=== PATIENT | male | born 1940 | race Caucasian/White ===

== ENCOUNTER 2018-02-28 07:10 | Emergency (ER) | payer MEDICARE, BC ==
[~2018-02-28] VITALS: Ht 195.6 cm; Wt 86.3 kg
[~2018-02-28 07:10] MED LIST: ATACAND8 MG PO; METFORMIN500 M2 PO; NAPROSYN250 MG PO; ULTRAM50 M1 PO
[2018-02-28] MEDS ORDERED: CEPHALEXIN500 M1 PO (07:15)
[2018-02-28] MEDS ORDERED: MUPIROCIN21 TOP (07:15)
[2018-02-28 07:32] VITALS: BP 171/68
== END 2018-02-28 07:39 | disposition home or self-care (01) ==
LOC: ED 07:10
DX: S81.812A Laceration without foreign body, left lower leg, initial encounter (principal); W22.8XXA Striking against or struck by other objects, initial encounter; Y93.89 Activity, other specified; Y92.89 Other specified places as the place of occurrence of the external cause; Y99.0 Civilian activity done for income or pay

== ENCOUNTER 2021-06-15 15:17 | Emergency (ER) | payer MEDICARE, BC ==
[~2021-06-15] VITALS: Ht 195.6 cm; Wt 87.0 kg
[~2021-06-15 15:17] MED LIST changes: +CEPHALEXIN500 M1 PO; +MUPIROCIN21 TOP
[2021-06-15] MEDS ORDERED: AMOX/K CLAV875 M1 PO (19:01)
[2021-06-15 19:07] VITALS: BP 138/72
[2021-07-20] MEDS ORDERED: COQ10200 MG PO (12:48)
[2021-07-20] MEDS ORDERED: CENTRUM SILVER1 TA2 PO (12:49)
[2021-07-20] MEDS ORDERED: ADLT ASA LOW81 MG PO (12:49)
[2021-07-20] MEDS ORDERED: [UNRECOGNIZED DRUG - CODE] PO (12:50)
[2021-07-20] MEDS ORDERED: SAW PALMETTO450 MG PO (12:50)
[2021-07-20] MEDS ORDERED: XYOSTED50 MG/0.5 IM (12:51)
[2021-07-20] MEDS ORDERED: PRAVASTATIN40 MG PO (12:52)
[2021-07-20] MEDS ORDERED: CINNAMON500 MG PO (12:52)
[2021-07-20] MEDS ORDERED: GLIPIZIDE ER5 MG PO (12:53)
[2021-07-20] MEDS ORDERED: ARIMIDEX1 MG PO (12:53)
[2021-07-20] MEDS ORDERED: ALPHA LIPOIC A600 MG PO (12:54)
[2021-07-20] MEDS ORDERED: TIMOLOL 0.25%5 ML OU (12:54)
[2021-07-20] MEDS ORDERED: GLUCOSAMINE/CHO1 CAP PO (12:55)
== END 2021-06-15 19:15 | disposition home or self-care (01) ==
LOC: ED 15:17
PROC: 0HQ1XZZ Repair Face Skin, External Approach (ICD-10-PCS; principal; 2021-06-15)
PROC: 0HQEXZZ Repair Left Lower Arm Skin, External Approach (ICD-10-PCS; 2021-06-15)
PROC: 09C47ZZ Extirpation of Matter from Left External Auditory Canal, Via Natural or Artificial Opening (ICD-10-PCS; 2021-06-15)
DX: S00.12XA Contusion of left eyelid and periocular area, initial encounter (principal); S00.212A Abrasion of left eyelid and periocular area, initial encounter; S51.012A Laceration without foreign body of left elbow, initial encounter; S80.212A Abrasion, left knee, initial encounter; S81.812A Laceration without foreign body, left lower leg, initial encounter; H61.22 Impacted cerumen, left ear; J32.8 Other chronic sinusitis; I10 Essential (primary) hypertension; E11.9 Type 2 diabetes mellitus without complications; W10.9XXA Fall (on) (from) unspecified stairs and steps, initial encounter; Y92.009 Unspecified place in unspecified non-institutional (private) residence as the place of occurrence of the external cause; Z79.82 Long term (current) use of aspirin; Z79.84 Long term (current) use of oral hypoglycemic drugs; Z20.822 Contact with and (suspected) exposure to COVID-19

== ENCOUNTER 2021-06-21 10:55 | Emergency (ER) | payer MEDICARE, BC ==
[~2021-06-21] VITALS: Ht 195.6 cm; Wt 86.0 kg
[~2021-06-21 10:55] MED LIST changes: +AMOX/K CLAV875 M1 PO
[2021-06-21 12:24] LABS: URINE BILIRUBIN - DIPSTICK NEGATIVE (NEGATIVE); URINE BLOOD DIPSTICK MODERATE (NEGATIVE); URINE COLOR YELLOW; URINE GLUCOSE - DIPSTICK 500 mg/dL (NEGATIVE); URINE KETONE TRACE mg/dL (NEGATIVE); URINE LEUK ESTERASE NEGATIVE (NEGATIVE); URINE PROTEIN - DIPSTICK NEGATIVE (NEG-TRACE); URINE UROBILINOGEN - DIPSTICK 0.2 E.U./dL (0.2)
[2021-06-21 12:25] LABS: URINE NITRITE - DIPSTICK NEGATIVE (Negative)
[2021-06-21 13:26] LABS: HEMATOCRIT 49.2 % (39.0-50.0); HEMOGLOBIN 16.6 g/dl (14.0-18.0); IMMATURE GRANULOCYTES 0.4 % (0.0-5.0); MEAN CELL VOLUME 85.6 fL CALC (80.0-100.0); MEAN CORPUSCULAR HGB 28.9 pG CALC (26.0-32.0); MEAN CORPUSCULAR HGB CONC 33.7 g/dL CAL (32.0-36.0); NEUT# 9.74 thou/uL (1.82-7.42); RED BLOOD COUNT 5.75 mill/uL (4.70-6.10); RED CELL DISTRI WIDTH 13.5 % (11.5-15.5)
[2021-06-21 13:40] LABS: ALKALINE PHOSPHATASE 37 u/l (38-126); ANION GAP 13 (6-22 (CALC)); BILIRUBIN, TOTAL 0.9 mg/dL (0.0-1.4); BUN 18 mg/dL (8-23); BUN/CREATININE RATIO 18 (12-20 (CALC)); CARBON DIOXIDE 28 mmol/l (22-30); CHLORIDE 99 mmol/l (95-108); GFR > 60 ML/MIN (>=60 (CALC)); GFR FOR AFR.AMER. > 60 ML/MIN (>=60 (CALC)); LIPASE 161 u/l (23-300); POTASSIUM 4.4 mmol/l (3.5-5.1); SGOT/AST 40 u/l (19-48); SODIUM 135 mmol/l (137-146); TOTAL PROTEIN 7.3 g/dL (6.3-8.2)
[2021-06-21] MEDS ORDERED: CIPROFLOXACN500 MG PO ×2 (14:03→14:51)
[2021-06-21 15:01] VITALS: BP 102/66
[2021-07-20] MEDS ORDERED: COQ10200 MG PO (12:48)
[2021-07-20] MEDS ORDERED: ADLT ASA LOW81 MG PO (12:49)
[2021-07-20] MEDS ORDERED: CENTRUM SILVER1 TA2 PO (12:49)
[2021-07-20] MEDS ORDERED: SAW PALMETTO450 MG PO (12:50)
[2021-07-20] MEDS ORDERED: [UNRECOGNIZED DRUG - CODE] PO (12:50)
[2021-07-20] MEDS ORDERED: XYOSTED50 MG/0.5 IM (12:51)
[2021-07-20] MEDS ORDERED: CINNAMON500 MG PO (12:52)
[2021-07-20] MEDS ORDERED: PRAVASTATIN40 MG PO (12:52)
[2021-07-20] MEDS ORDERED: ARIMIDEX1 MG PO (12:53)
[2021-07-20] MEDS ORDERED: GLIPIZIDE ER5 MG PO (12:53)
[2021-07-20] MEDS ORDERED: TIMOLOL 0.25%5 ML OU (12:54)
[2021-07-20] MEDS ORDERED: ALPHA LIPOIC A600 MG PO (12:54)
[2021-07-20] MEDS ORDERED: GLUCOSAMINE/CHO1 CAP PO (12:55)
== END 2021-06-21 15:02 | disposition home or self-care (01) ==
LOC: ED 10:55
PROC: 0T9B70Z Drainage of Bladder with Drainage Device, Via Natural or Artificial Opening (ICD-10-PCS; principal; 2021-06-21)
DX: R33.9 Retention of urine, unspecified (principal); I10 Essential (primary) hypertension; E11.9 Type 2 diabetes mellitus without complications; I25.10 Atherosclerotic heart disease of native coronary artery without angina pectoris; Z95.5 Presence of coronary angioplasty implant and graft; Z79.84 Long term (current) use of oral hypoglycemic drugs

== ENCOUNTER 2021-06-22 10:33 | Emergency (ER) | payer MEDICARE, BC ==
[~2021-06-22] VITALS: Ht 195.6 cm; Wt 86.3 kg
[~2021-06-22 10:33] MED LIST changes: +CIPROFLOXACN500 MG PO
[2021-06-22 10:46] VITALS: BP 138/70
[2021-06-22 11:28] LABS: URINE BILIRUBIN - DIPSTICK NEGATIVE (NEGATIVE); URINE BLOOD DIPSTICK LARGE (NEGATIVE); URINE GLUCOSE - DIPSTICK 500 mg/dL (NEGATIVE); URINE KETONE TRACE mg/dL (NEGATIVE); URINE LEUK ESTERASE TRACE (NEGATIVE); URINE PH 5.5 (4.5-8.0); URINE PROTEIN - DIPSTICK 100 mg/dL (NEG-TRACE); URINE SPECIFIC GRAVITY >=1.030; URINE UROBILINOGEN - DIPSTICK 0.2 E.U./dL (0.2)
[2021-06-22 11:30] LABS: URINE COLOR BLOODY; URINE NITRITE - DIPSTICK NEGATIVE (Negative)
[2021-06-22 11:32] LABS: HEMATOCRIT 49.7 % (39.0-50.0); HEMOGLOBIN 16.7 g/dl (14.0-18.0); IMMATURE GRANULOCYTES 0.4 % (0.0-5.0); MEAN CELL VOLUME 85.8 fL CALC (80.0-100.0); MEAN CORPUSCULAR HGB 28.8 pG CALC (26.0-32.0); MEAN CORPUSCULAR HGB CONC 33.6 g/dL CAL (32.0-36.0); NEUT# 7.9 thou/uL (1.82-7.42); RED BLOOD COUNT 5.79 mill/uL (4.70-6.10); RED CELL DISTRI WIDTH 13.7 % (11.5-15.5)
[2021-06-22 11:49] LABS: ACT PARTIAL THROMBO TIME 25.2 SECONDS (20.0-32.5); ALBUMIN 3.9 g/dL (3.2-5.0); ALKALINE PHOSPHATASE 34 u/l (38-126); ANION GAP 14 (6-22 (CALC)); BILIRUBIN, TOTAL 0.9 mg/dL (0.0-1.4); BUN 20 mg/dL (8-23); BUN/CREATININE RATIO 21 (12-20 (CALC)); CARBON DIOXIDE 27 mmol/l (22-30); CHLORIDE 99 mmol/l (95-108); GFR > 60 ML/MIN (>=60 (CALC)); GFR FOR AFR.AMER. > 60 ML/MIN (>=60 (CALC)); INTERNATIONAL NORMALIZED RATIO 1.1 RATIO (0.7-1.3); LIPASE 147 u/l (23-300); POTASSIUM 4.6 mmol/l (3.5-5.1); PROTHROMBIN TIME 11.5 SECONDS (9.0-12.5); SGOT/AST 31 u/l (19-48); SODIUM 135 mmol/l (137-146); TOTAL PROTEIN 6.8 g/dL (6.3-8.2)
[2021-07-20] MEDS ORDERED: COQ10200 MG PO (12:48)
[2021-07-20] MEDS ORDERED: ADLT ASA LOW81 MG PO (12:49)
[2021-07-20] MEDS ORDERED: CENTRUM SILVER1 TA2 PO (12:49)
[2021-07-20] MEDS ORDERED: [UNRECOGNIZED DRUG - CODE] PO (12:50)
[2021-07-20] MEDS ORDERED: SAW PALMETTO450 MG PO (12:50)
[2021-07-20] MEDS ORDERED: XYOSTED50 MG/0.5 IM (12:51)
[2021-07-20] MEDS ORDERED: PRAVASTATIN40 MG PO (12:52)
[2021-07-20] MEDS ORDERED: CINNAMON500 MG PO (12:52)
[2021-07-20] MEDS ORDERED: ARIMIDEX1 MG PO (12:53)
[2021-07-20] MEDS ORDERED: GLIPIZIDE ER5 MG PO (12:53)
[2021-07-20] MEDS ORDERED: ALPHA LIPOIC A600 MG PO (12:54)
[2021-07-20] MEDS ORDERED: TIMOLOL 0.25%5 ML OU (12:54)
[2021-07-20] MEDS ORDERED: GLUCOSAMINE/CHO1 CAP PO (12:55)
== END 2021-06-22 15:34 | disposition home or self-care (01) ==
LOC: ED 10:33
PROC: 0T2BX0Z Change Drainage Device in Bladder, External Approach (ICD-10-PCS; principal; 2021-06-22)
DX: R31.9 Hematuria, unspecified (principal); I10 Essential (primary) hypertension; E11.9 Type 2 diabetes mellitus without complications; N40.1 Benign prostatic hyperplasia with lower urinary tract symptoms; R33.8 Other retention of urine; Z96.0 Presence of urogenital implants; Z79.84 Long term (current) use of oral hypoglycemic drugs; Z95.5 Presence of coronary angioplasty implant and graft

== ENCOUNTER 2021-06-24 10:33 | Emergency (ER) | payer MEDICARE, BC ==
[~2021-06-24] VITALS: Ht 195.6 cm; Wt 87.0 kg
[2021-06-24 12:59] VITALS: BP 171/74
[2021-07-20] MEDS ORDERED: COQ10200 MG PO (12:48)
[2021-07-20] MEDS ORDERED: CENTRUM SILVER1 TA2 PO (12:49)
[2021-07-20] MEDS ORDERED: ADLT ASA LOW81 MG PO (12:49)
[2021-07-20] MEDS ORDERED: SAW PALMETTO450 MG PO (12:50)
[2021-07-20] MEDS ORDERED: [UNRECOGNIZED DRUG - CODE] PO (12:50)
[2021-07-20] MEDS ORDERED: XYOSTED50 MG/0.5 IM (12:51)
[2021-07-20] MEDS ORDERED: CINNAMON500 MG PO (12:52)
[2021-07-20] MEDS ORDERED: PRAVASTATIN40 MG PO (12:52)
[2021-07-20] MEDS ORDERED: ARIMIDEX1 MG PO (12:53)
[2021-07-20] MEDS ORDERED: GLIPIZIDE ER5 MG PO (12:53)
[2021-07-20] MEDS ORDERED: ALPHA LIPOIC A600 MG PO (12:54)
[2021-07-20] MEDS ORDERED: TIMOLOL 0.25%5 ML OU (12:54)
[2021-07-20] MEDS ORDERED: GLUCOSAMINE/CHO1 CAP PO (12:55)
== END 2021-06-24 13:03 | disposition home or self-care (01) ==
LOC: ED 10:33
PROC: 0T2BX0Z Change Drainage Device in Bladder, External Approach (ICD-10-PCS; principal; 2021-06-24)
DX: T83.031A Leakage of indwelling urethral catheter, initial encounter (principal); I10 Essential (primary) hypertension; I25.10 Atherosclerotic heart disease of native coronary artery without angina pectoris; E11.9 Type 2 diabetes mellitus without complications; Y84.6 Urinary catheterization as the cause of abnormal reaction of the patient, or of later complication, without mention of misadventure at the time of the procedure; Z79.82 Long term (current) use of aspirin; Z95.5 Presence of coronary angioplasty implant and graft; Z79.84 Long term (current) use of oral hypoglycemic drugs

== ENCOUNTER 2021-06-30 06:34 | Emergency (ER) | payer MEDICARE, BC ==
[2021-06-30 07:18] LABS: URINE BILIRUBIN - DIPSTICK NEGATIVE (NEGATIVE); URINE BLOOD DIPSTICK SMALL (NEGATIVE); URINE COLOR YELLOW; URINE GLUCOSE - DIPSTICK NEGATIVE (NEGATIVE); URINE KETONE NEGATIVE (NEGATIVE); URINE LEUK ESTERASE NEGATIVE (NEGATIVE); URINE PROTEIN - DIPSTICK NEGATIVE (NEG-TRACE); URINE SPECIFIC GRAVITY 1.015; URINE UROBILINOGEN - DIPSTICK 0.2 E.U./dL (0.2)
[2021-06-30 07:20] LABS: URINE NITRITE - DIPSTICK NEGATIVE (Negative)
[2021-06-30 07:21] LABS: URINE BACTERIA FEW hpf; URINE SQUAMOUS EPITHELIAL CELL FEW EPI/hpf (0-FEW)
[2021-06-30] MEDS ORDERED: TAMSULOSIN0.4 MG PO (08:02)
[2021-06-30] MEDS ORDERED: LOSARTAN POTASS25 MG PO (08:02)
[2021-06-30 09:53] VITALS: BP 148/70
[2021-07-20] MEDS ORDERED: COQ10200 MG PO (12:48)
[2021-07-20] MEDS ORDERED: CENTRUM SILVER1 TA2 PO (12:49)
[2021-07-20] MEDS ORDERED: ADLT ASA LOW81 MG PO (12:49)
[2021-07-20] MEDS ORDERED: [UNRECOGNIZED DRUG - CODE] PO (12:50)
[2021-07-20] MEDS ORDERED: SAW PALMETTO450 MG PO (12:50)
[2021-07-20] MEDS ORDERED: XYOSTED50 MG/0.5 IM (12:51)
[2021-07-20] MEDS ORDERED: PRAVASTATIN40 MG PO (12:52)
[2021-07-20] MEDS ORDERED: CINNAMON500 MG PO (12:52)
[2021-07-20] MEDS ORDERED: GLIPIZIDE ER5 MG PO (12:53)
[2021-07-20] MEDS ORDERED: ARIMIDEX1 MG PO (12:53)
[2021-07-20] MEDS ORDERED: ALPHA LIPOIC A600 MG PO (12:54)
[2021-07-20] MEDS ORDERED: TIMOLOL 0.25%5 ML OU (12:54)
[2021-07-20] MEDS ORDERED: GLUCOSAMINE/CHO1 CAP PO (12:55)
== END 2021-06-30 10:02 | disposition home or self-care (01) ==
LOC: ED 06:34
PROVIDERS: Emergency Medicine
PROC: 0T9B70Z Drainage of Bladder with Drainage Device, Via Natural or Artificial Opening (ICD-10-PCS; principal; 2021-06-30)
DX: R33.9 Retention of urine, unspecified (principal); E11.9 Type 2 diabetes mellitus without complications; I10 Essential (primary) hypertension; Z95.5 Presence of coronary angioplasty implant and graft; Z79.84 Long term (current) use of oral hypoglycemic drugs

== ENCOUNTER 2021-07-23 07:21 | Observation (INO) | payer MEDICARE, BC ==
[2021-07-23] VITALS (8 sets, daily range): BP systolic 110–136; BP diastolic 62–75
[~2021-07-23] VITALS: Ht 195.6 cm; Wt 88.0 kg
[~2021-07-23 07:21] MED LIST changes: +ADLT ASA LOW81 MG PO; +ALPHA LIPOIC A600 MG PO; +ARIMIDEX1 MG PO; +CENTRUM SILVER1 TA2 PO; +CINNAMON500 MG PO; +COQ10200 MG PO; +GLIPIZIDE ER5 MG PO; +GLUCOSAMINE/CHO1 CAP PO; +LOSARTAN POTASS25 MG PO; +PRAVASTATIN40 MG PO; +SAW PALMETTO450 MG PO; +TAMSULOSIN0.4 MG PO; +TIMOLOL 0.25%5 ML OU; +XYOSTED50 MG/0.5 IM; +[UNRECOGNIZED DRUG - CODE] PO
--- NOTE | 2021-07-23 14:20 | NUR ---
RECEIVED PATIENT FROM PACU AT THIS TIME. PATIENT ALERT AND ORIENTED, LUNG MENDOZA ARE CLEAR PATIENT HAS 3WAY BOUDREAUX CATH WITH CBI RUNNING AT THIS TIME. PATINET URINE IS CLEAR AND MCMAHON RED. PATIENT DENIES ANY PIAN AT THIS TIME AND IS ALERT AND ORIENTED AT THIS TIME. PATIENT DOES PRESENT WITH SCAB ON LEFT SHARP OR NURSE APPLIED A ISLAND DRESSING TO PROTECT FROM SHEETS. LUNG SOUNDS ASSESSED AND ARE ARE CLEAR. PATIENT ORIENTED TO ROOM AND FALL SAFETY AT THIS TIME. SIDERAILS ARE UP X 2 CALL LIGHT WITHIN REACH. IV PATENT AND .9 NORMAL SALINE GOING AT 125 MLS/HR.
--- NOTE | 2021-07-23 18:35 | NUR ---
TOTAL CBI ON THIS SHIFT WAS 15,000 AND TOTAL OUTPUT OF URINE IS 2,950 OF RED COLOR CLEAR URINE. PATIENT DENEIS ANY PAIN AT THIS TIME AND PATIENT IS TOLERATING FLUIDS AND IV WAS SALINE LOCKED AT THIS TIME.
--- NOTE | 2021-07-23 20:35 | NUR ---
PHYSICAL ASSESMENT COMPLETE. PT CURRENTLY DENIES PAIN OR DISCOMFORT.PT RECEIVING CBI. OUTPUT IS REDDISH IN COLOR AND FLOWING FREELY WITH GRAVITY. SCHEDULED MEDICATIONS AND PRN MEDICATION ADMINISTERED, SEE E-MAR. PT DENIES ANY NEEDS AT THIS TIME. PLAN OF CARE REVIEWED, PT DENIES QUESTIONS, VERBALIZES UNDERSTANDING. ITEMS WITHIN REACH, BED LOCKED IN LOW POSITION W/ BEDRAILS UP X2. CALL TRINH WITHIN REACH, AGREES TO CALL PRN.
--- NOTE | 2021-07-24 01:48 | NUR ---
PT LAYING IN BED WITH EYES CLOSED, APPEARS TO BE SLEEPING, APPEARS COMFORTABLE AND IN NO DISTRESS. RESPIRATIONS REGULAR AND UNLABORED. PT RECEIVING CBI. FLOW IS STREAMING TO GRAVITY; TUBING FREE ON KINKS. ITEMS REMAIN WITHIN REACH, CALL TRINH REMAINS WITHIN REACH. BED REMAINS LOCKED AND IN LOW POSITION WITH BEDRAILS UP X2. WILL CONTINUE TO MONITOR.
--- NOTE | 2021-07-24 03:48 | NUR ---
PT RESTING IN BED, NO SIGNS OF DISTRESS NOTED, RESP EVEN AND UNLABORED. PT VOICES NO NEEDS OR COMPLAINTS AT THIS TIME. CALL LIGHT IN REACH, CONTINUE TO MONITOR.
--- NOTE | 2021-07-24 04:00 | NUR ---
PT REFUSED VITALS. STATES." NURSE HAS BEEN IN MY ROOM ALL NIGHT AND I NEED REST." PT IS RECEIVING CBI.
[2021-07-24 07:15] VITALS: BP 130/80
--- NOTE | 2021-07-24 07:46 | NUR ---
PATIENT LAYING IN BED AT THIS TIME. PATIENT STILL HAS CBI RUNNING AND URINE IS PINK TO LT RED AT THIS TIME. PATIENT DENIES ANY PAIN. PATIENT ASSISTED TO BATHROOM AND HAD BMX1. SIDERAILS ARE UP CALL LIGHT WITHIN REACH. WILL CONTINUE TO MONITOR.
--- NOTE | 2021-07-24 12:22 | NUR ---
PATIENT RESTING AT THIS TIME. CBI IRRIGATION REMAINS IN PLACE PATIENT URINE COLOR AT THIS TIME IS "CRANBERRY" AND WITHOUT CLOTS AT THIS TIME. PATIENT DENIES ANY PAIN CURRENTLY SIDERAILS ARE UP CALL LIGHT WITHIN REACH.
[2021-07-24 15:55] VITALS: BP 120/75
--- NOTE | 2021-07-24 15:59 | NUR ---
PATIENT RESTING IN BED AT THIS TIME. CBI IRRIGATION REMAINS IN PLACE AT THIS TIME AND FLOWING. BOUDREAUX PATENT AND DRAINING CRANBERRY URINE AT THIS TIME. PATIENT DENIES PAIN. DR. SANZ CALLED TO STATE HE WILL BE IN TO SEE PATIENT TODAY. SIDERAILS ARE UP CALL LIGHT WITHIN REACH.
--- NOTE | 2021-07-24 16:35 | NUR ---
DR. SANZ CAME IN TO SEE PATIENT AT THIS TIME AND IRRIGATED BLADDER FOR CLOTS AND NO CLOTS WERE EXTRACTED. DR. SANZ GAVE ORDERS FOR PATIENT TO BE ON BEDREST AND CONTINUE CBI UNTIL MORNING AND IF CLEAR/PINK CAN GO HOME IF URINE DOES NOT GO TO CLEAR/PINK THEN PATIENT NEEDS TO STAY UNTIL DR. ROD SEES HIM ON MONDAY. PATIENT AND THIS NURSE VERBALIZED UNDERSTANDING OF INSTRUCTIONS.
--- NOTE | 2021-07-24 18:28 | NUR ---
CBI CONTINUES AT THIS TIME. TOTAL CBI INPUT WAS 18,000 ML AND TOTAL OUTPUT OF URINE IS 4450 THIS SHIFT. URINE COLOR REMAINS PINKISH TO STRABERRY IN COLOR AND NO CLOTS SEEN AT THIS TIME. PATIENT WILL CONTINUE TO BE MONITORED.
[2021-07-24 19:00] VITALS: BP 125/53
--- NOTE | 2021-07-24 20:00 | NUR ---
PATIENT RESTING IN BED AT THIS TIME-MAINTAINING ON BEDREST ORDERED. PATIENT WITH CBI IN PROGRESS DRAINING LIGHT MCMAHON URINE. SALINE LOCK TO LAC INTACT AND HEALTHY AT THIS TIME. PATIENT WITH NO COMPLAINTS AT THIS TIME. SAFETY PRECAUTIONS REINFORCED. CALL LIGHT IN REACH. WILL CONT TO MONITOR.
[2021-07-24 20:16] VITALS: BP 109/63; BP 125/53
--- NOTE | 2021-07-25 | NUR ---
PATIENT RESTING IN BED-ASKED FOR BEDPAN FOR POSSIBLE BM. NOT SUCCESSFUL AT THIS TIME. CBI CONT ORDERED. CALL LIGHT IN REACH. WILL CONT TO MONITOR
--- NOTE | 2021-07-25 01:54 | NUR ---
PATIENT RESTING IN BED-CBI CONT ORDERED-CONT TO DRAIN LIGHT MCMAHON URINE. PATIENT ASSISTED WITH BOUDREAUX CATH CARE USING SOAP AND WATER. MODERATE AMT OF OLD BLOODY DRAINAGE NOTED. CALL LIGHT IN REACH. WILL CONT TO RENA.
--- NOTE | 2021-07-25 01:57 | NUR ---
PATIENT RESTING IN BED AT THIS TIME-POSITIONED ON LEFT SIDE WITH EYES CLOSED. RESPS ARE EVEN AND UNLABORED. CBI CONT ORDERED. CALL LIGHT IN REACH. WILL CONT TO MONITOR.
--- NOTE | 2021-07-25 03:31 | NUR ---
PATIENT CONT ON LEFT SIDE WITH EYES CLSOED. RESPS ARE EVEN AND UNLABORED. CBI CONT ORDERED DRAINING LIGHT CRANBERRY AT THIS TIME. CALL LIGHT IN REACH. WILL CONT TO MONITOR.
[2021-07-25 04:27] VITALS: BP 110/61
[2021-07-25 05:36] LABS: HEMOGLOBIN 14.9 g/dl (14.0-18.0); MEAN CELL VOLUME 87.1 fL CALC (80.0-100.0); MEAN CORPUSCULAR HGB 29.9 pG CALC (26.0-32.0); MEAN CORPUSCULAR HGB CONC 34.3 g/dL CAL (32.0-36.0); RED BLOOD COUNT 4.98 mill/uL (4.70-6.10); RED CELL DISTRI WIDTH 15.1 % (11.5-15.5)
[2021-07-25 05:42] LABS: HEMATOCRIT 43.4 % (39.0-50.0)
[2021-07-25 05:58] LABS: ANION GAP 11 (6-22 (CALC)); BUN 13 mg/dL (8-23); BUN/CREATININE RATIO 15 (12-20 (CALC)); CARBON DIOXIDE 26 mmol/l (22-30); CHLORIDE 101 mmol/l (95-108); CREATININE 0.9 mg/dL (0.7-1.3); GFR > 60 ML/MIN (>=60 (CALC)); GFR FOR AFR.AMER. > 60 ML/MIN (>=60 (CALC)); POTASSIUM 3.8 mmol/l (3.5-5.1); SODIUM 134 mmol/l (137-146)
--- NOTE | 2021-07-25 06:00 | NUR ---
PATIENT RESTING IN BED AT THIS TIME WITH EYES CLOSED. RESPS ARE EVEN AND UNLABORED. CBI IN PROGRESS-DRAINING CRANBERRY CLEAR URINE. CALL LIGHT IN REACH. WILL CONT TO MONITOR.
--- NOTE | 2021-07-25 06:45 | NUR ---
REPORT RECEIVED FROM JACQUI ALY. CARE ASSUMED.
[2021-07-25 07:45] VITALS: BP 135/61
--- NOTE | 2021-07-25 07:45 | NUR ---
PATIENT RESTING IN BED AWAKE. PT IS ALERT AND ORIENTED X3. SHIFT ASSESSMENT COMPLETED AT THIS TIME. IV PATENT X1. CBI CLAMPED AT THIS TIME PER MD ORDER. WILL REEVALUATE URINE AND CLOTS AND BLEEDING. CALL LIGHT IN REACH. WILL CONTINUE TOMONITOR.
--- NOTE | 2021-07-25 08:30 | NUR ---
FIELD CARE ADVOCATE AT BEDSIDE TO ASSIST PATIENT TO BATHROOM FOR BM.
--- NOTE | 2021-07-25 10:30 | NUR ---
BLEEDING INCREASED WITH SOME CLOTS NOTED IN BOUDREAUX WILL CONTINUE TO MONITOR.
--- NOTE | 2021-07-25 11:23 | NUR ---
PHONED DR SANZ LEFT VOICEMAIL IN REFERENCE TO CBI AND BLEEDING.
--- NOTE | 2021-07-25 11:40 | NUR ---
DR SANZ PHONED BACK. ORDERS RECEIVED TO PA ASA. RUN CBI OPEN AND GIVE STOOL SOFTENER. AND HAVE PATIENT STAY IN BED TOLERATED. PATIENT NOTIFIED OF ORDERS AND IS AGREEABLE WITH PLAN OF CARE. CALL LIGHT IN REACH. WILL CONTINUE TOMONITOR.
[2021-07-25 15:00] VITALS: BP 123/63
--- NOTE | 2021-07-25 16:00 | NUR ---
PATIENT RESTING IN BED WATCHING TV. RESP ARE EVEN AND UNLABORED. NO DISTRESS NOTED. CALL LIGHT IN REACH. WILL CONTINUE TOMONTIOR.
[2021-07-25 18:00] VITALS: BP 118/69
--- NOTE | 2021-07-25 20:00 | NUR ---
PATIENT RESTING IN BED AT THIS TIME-AWAKE ALERT AND ORIENTEDX3. PATIENT WITH 3-WAY BOUDREAUX WITH CBI IN PROGRESS-DRAINING BLOODY URINE AT THIS TIME. TAKING PO FLUIDS WELL. PATIENT WITH BE NPO AFTER MN FOR POSSIBLE UROLOGY PROCEDURE IN AM WITH DR. SHIN. SALINE LOCK TO LAC INTACT. SAFETY PRECAUTIONS REINFORCED. CALL LIGHT IN REACH. WILL CONT TO MONITOR.
[2021-07-26] VITALS (9 sets, daily range): BP systolic 99–141; BP diastolic 61–81
--- NOTE | 2021-07-26 00:48 | NUR ---
PATIENT WAS UP TO THE BSC FOR HARD FORMED BM AND THEN BACK TO BED. CBI CONT AND DRAINING LIGHT PEACH URINE AT THIS TIME. LARGE AMT OF BLOODY DRAINAGE NOTED AROUND BOUDREAUX CATH INSERTION SITE. BOUDREAUX CATH CARE DONE WITH SOAP AND WATER. 3-WAY CATH SECURED TO RIGHT THIGH. NO COMPLAINTS AT THIS TIME. CALL LIGHT IN REACH. WILL CONT TO MONITOR.
--- NOTE | 2021-07-26 04:37 | NUR ---
PATIENT RESTING IN BED AT THIS TIME WITH EYES CLOSED. RESPS ARE EVEN AND UNLABORED. CBI IN PROGRESS WITH YELLOW URINE DRAINING AT THIS TIME. SALINE LOCK TO RAC REMAINS IN PLACE. NPO ORDERED. CALL LIGHT IN REACH. WILL CONT TO MONITOR
[2021-07-26 05:42] LABS: HEMATOCRIT 44.4 % (39.0-50.0); HEMOGLOBIN 15.1 g/dl (14.0-18.0); MEAN CELL VOLUME 86.5 fL CALC (80.0-100.0); MEAN CORPUSCULAR HGB 29.4 pG CALC (26.0-32.0); RED BLOOD COUNT 5.13 mill/uL (4.70-6.10); RED CELL DISTRI WIDTH 14.9 % (11.5-15.5)
[2021-07-26 05:57] LABS: ANION GAP 10 (6-22 (CALC)); BUN 12 mg/dL (8-23); BUN/CREATININE RATIO 16 (12-20 (CALC)); CARBON DIOXIDE 25 mmol/l (22-30); CHLORIDE 102 mmol/l (95-108); CREATININE 0.8 mg/dL (0.7-1.3); GFR > 60 ML/MIN (>=60 (CALC)); GFR FOR AFR.AMER. > 60 ML/MIN (>=60 (CALC)); POTASSIUM 3.9 mmol/l (3.5-5.1); SODIUM 133 mmol/l (137-146)
[2021-07-26 06:18] LABS: INTERNATIONAL NORMALIZED RATIO 1.1 RATIO (0.7-1.3); PROTHROMBIN TIME 11.4 SECONDS (9.0-12.5)
--- NOTE | 2021-07-26 16:20 | NUR ---
PT LYING IN BED NO COMPLAINTS OTHER THAN BEING HUNGRY. EMA AT DR SHIN OFFICE CALLED ABOUT 1300 STATING THEY WOULD SEE PT FOR CYSTO AT 1700. PT URINE STILL DARK ARIES.
--- NOTE | 2021-07-26 18:30 | NUR ---
PT TO OR
--- NOTE | 2021-07-26 21:00 | NUR ---
PATIENT RETURNED FROM PACU VIA STRETCHER WITH PACU STAFF IN ATTENDANCE. PATIENT IS AWAKE AND ABLE TO ASSIST TO TRANSFER INTO BED. ALERT AND ORIENTEDX3. PATIENT WITH 3-WAY BOUDREAUX IN PLACE AND SECURED TO RIGHT THIGH. CBI IN PROGRESS AND DRAINING-LIGHT PINK URINE. IVF NS PATENT AND INFUSING VIA RIGHT AC SITE ORDERED. SITE IS HEALTHY AT THIS TIME. PATIENT TAKING PO FLUIDS-TOLERATING WELL. PATIENT DENIES ANY PAIN AT THIS TIME. HEALTHY CHOICE TURKEY DINNER PROVIDED AND PATIENT TOLERATED WELL. SAFETY PRECAUTIONS REINFORCED. CALL LIGHT IN REACH. WILL CONT TO MONITOR.
--- NOTE | 2021-07-27 | NUR ---
PATIENT READING IN BED WITH NO COMPLAINTS. CONT TO TAKE PO FLUIDS WELL-TOLERATED WELL. IVF D/C'ED AND IV SITE CONVERTED TO SALINE LOCK. CBI CONT DRAINING VERY PALE PINK URINE., TRACTION REMAINS IN PLACE. CALL LIGHT IN REACH, WILL CONT TO MONITOR.
--- NOTE | 2021-07-27 03:48 | NUR ---
PATIENT RESTING IN BED WITH EYES CLOSED. RESPS ARE EVEN AND UNLABORED. CBI IN PROGRESS-DRAINING YELLOW URINE AT THIS TIME. TRACTION TO RIGHT THIGH REMAINS IN PLACE. CALL LIGHT IN REACH. WILL CONT TO MONITOR.
[2021-07-27 04:39] VITALS: BP 128/75
--- NOTE | 2021-07-27 06:10 | NUR ---
PATIENT RESTING IN BED-CBI IN PROGRESS-DRAINING LIGHT PINK URINE. PATIENT GIVEN BOUDREAUX CATH CATH FOR MODERATE AMT OF BLOODY DRAINAGE. TRACTION REMAINS TO RIGHT THIGH. CALL LIGHT IN REACHL.WILL CONT TO MONITOR.
[2021-07-27 07:27] LABS: HEMATOCRIT 43.8 % (39.0-50.0); HEMOGLOBIN 14.7 g/dl (14.0-18.0); MEAN CELL VOLUME 87.8 fL CALC (80.0-100.0); MEAN CORPUSCULAR HGB 29.5 pG CALC (26.0-32.0); MEAN CORPUSCULAR HGB CONC 33.6 g/dL CAL (32.0-36.0); RED BLOOD COUNT 4.99 mill/uL (4.70-6.10)
[2021-07-27 07:30] LABS: ANION GAP 11 (6-22 (CALC)); BUN 14 mg/dL (8-23); BUN/CREATININE RATIO 20 (12-20 (CALC)); CARBON DIOXIDE 26 mmol/l (22-30); CHLORIDE 102 mmol/l (95-108); CREATININE 0.7 mg/dL (0.7-1.3); GFR > 60 ML/MIN (>=60 (CALC)); GFR FOR AFR.AMER. > 60 ML/MIN (>=60 (CALC)); MAGNESIUM 1.8 mg/dL (1.6-2.3); POTASSIUM 4.1 mmol/l (3.5-5.1); SODIUM 135 mmol/l (137-146)
[2021-07-27 07:45] VITALS: BP 129/77
--- NOTE | 2021-07-27 07:45 | NUR ---
BEDSIDE REPORT RECEIVED, NO COMPLAINTES PER PATIENT. WILL CONTINUE TO MONITOR.
--- NOTE | 2021-07-27 11:00 | NUR ---
PT GOT UP TO BATHROOM, BOUDREAUX IS TRACTION TO RIGHT LEG. CHICLE GRINDER FEEDER STATED WAS BLEEDING AROUND CATH. SN OBSERVED BASEBALL SIZED POOL OF BLOOD ON GARY ON PT BED. PT HAS SOME BLOOD DRIPPING FROM SIDES OF CATHETER. SN INFORMED DR SHIN OFFICE OF ISSUES DR SHIN STATED THIS IS NORMAL AND PT WILL BE BLEEDING FOR A COUPLE WEEKS. DR SHIN STATED IF PT HAS CLEAR URINE FOR MOST OF DAY HE CAN BE D/C HOME BOUDREAUX WITH IN PLACE, WITH HOME HEALTH.
[2021-07-27 14:39] VITALS: BP 124/67
--- NOTE | 2021-07-27 16:40 | NUR ---
SPOKE WITH NURSE BOO AT DR SHIN OFFICE STATED OK TO REMOVE TAPE AND REPLACE WITH LEG STRAP TO HIGH THIGH
--- NOTE | 2021-07-27 17:45 | NUR ---
PT ESCORTED VIA WC PER REGINA
== END 2021-07-27 17:32 ==
LOC: ORM 07:21 → MS2 07:21 → ORM 07:55 → MS2 14:45 → ORM 07-26 06:00 → MS2 07-26 07:00 → ORM 07-26 11:00 → MS2 07-26 11:00 → ORM 07-26 11:06 → MS2 07-26 11:06
PROVIDERS: Nurse Practitioner; Urology; ADMIT Hospitalist; ATTEND Hospitalist
PROC: 0VB08ZZ Excision of Prostate, Via Natural or Artificial Opening Endoscopic (ICD-10-PCS; principal; 2021-07-23)
PROC: 0TCB8ZZ Extirpation of Matter from Bladder, Via Natural or Artificial Opening Endoscopic (ICD-10-PCS; 2021-07-26)
PROC: 0W3R8ZZ Control Bleeding in Genitourinary Tract, Via Natural or Artificial Opening Endoscopic (ICD-10-PCS; 2021-07-26)
DX: N40.1 Benign prostatic hyperplasia with lower urinary tract symptoms (principal); R33.8 Other retention of urine; N13.8 Other obstructive and reflux uropathy; N42.1 Congestion and hemorrhage of prostate; I10 Essential (primary) hypertension; E11.9 Type 2 diabetes mellitus without complications; I25.10 Atherosclerotic heart disease of native coronary artery without angina pectoris; Z79.84 Long term (current) use of oral hypoglycemic drugs; Z95.5 Presence of coronary angioplasty implant and graft
CPT/HCPCS: G0378; J1956